=== PATIENT | male | born 1975 | race Hispanic/Latino ===

== ENCOUNTER 2017-06-16 08:55 | Inpatient (IN) | payer BC ==
--- NOTE | 2017-06-16 09:50 | ED PDOC ---
HPI: Back Time Seen by Provider: 06/16/17 09:08 Chief Complaint (Nursing): Back Pain Chief Complaint (Provider): Back pain History Per: Patient History/Exam Limitations: no limitations Onset/Duration Of Symptoms: Days (x2 months), Worse Since Current Symptoms Are (Timing): Still Present Associated Symptoms: None Exacerbating Factor(s): Sitting Additional Complaint(s): Tiburcio Beyer is a 41 year old male, with no significant past medical history, who presents to the emergency department complaining of weakness to right toes ongoing for x2 months and a worsening chronic right sided back pain since today. Patient reports the pain radiates down the right leg. Patient states symptoms worsen with sitting down and alleviated when laying flat. Patient was seen by neurosurgeon this week and had an MRI done x2 days ago. He was diagnosed with herniated disc and spinal stenosis, and prescribed steroids and ibuprofen. He denies any new weakness or numbness, urinary symptoms, fever or chills. No further medical complaints. PMD: None provided. Past Medical History Reviewed: Historical Data, Nursing Documentation, Vital Signs Vital Signs: Last Vital Signs Temp 98.7 F 06/16/17 09:00 Pulse 70 06/16/17 09:00 Resp 20 06/16/17 09:00 BP 112/75 06/16/17 09:00 Pulse Ox 99 06/16/17 09:00 - Surgical History Surgical History: No Surg Hx - Family History Family History: States: Unknown Family Hx - Social History Current smoker - smoking cessation education provided: No Alcohol: None Drugs: Denies - Home Medications Home Medications: Ambulatory Orders Medication Instructions Recorded Ibuprofen [Motrin Tab] 800 mg PO Q8H PRN 06/16/17 predniSONE [predniSONE Tab] 10 mg PO ASDIR 06/16/17 tiZANidine [Zanaflex] 2 mg PO HS 06/16/17 - Allergies Allergies/Adverse Reactions: Allergies Allergy/AdvReac Type Severity Reaction Status Date / Time No Known Allergies Allergy Verified 06/16/17 09:17 Review of Systems ROS Statement: Except As Marked, All Systems Reviewed And Found Negative Constitutional: Negative for: Fever, Chills Genitourinary Male: Negative for: Dysuria, Frequency, Incontinence Musculoskeletal: Positive for: Back Pain (right sided ), Leg Pain (right), Foot Pain (right toes weakness) Neurological: Negative for: Weakness, Numbness Physical Exam - Reviewed Nursing Documentation Reviewed: Yes Vital Signs Reviewed: Yes - Physical Exam Appears: Positive for: Non-toxic, No Acute Distress, Uncomfortable (from pain) Head Exam: Positive for: ATRAUMATIC, NORMAL INSPECTION, NORMOCEPHALIC Skin: Positive for: Normal Color, Warm, Dry Eye Exam: Positive for: Normal appearance, EOMI, PERRL Neck: Positive for: Painless ROM, Supple Cardiovascular/Chest: Positive for: Regular Rate, Rhythm. Negative for: Murmur Respiratory: Positive for: Normal Breath Sounds. Negative for: Respiratory Distress Gastrointestinal/Abdominal: Positive for: Normal Exam, Soft. Negative for: Tenderness, Guarding, Rebound Back: Positive for: Normal Inspection. Negative for: L CVA Tenderness, R CVA Tenderness, Vertebral Tenderness Extremity: Positive for: Normal ROM (lower extremities.), Other (plantar flexion and extension of toes limited due to weakness. ). Negative for: Tenderness, Pedal Edema, Deformity, Swelling Neurologic/Psych: Positive for: Alert, Oriented (x3), Gait (antalgic). Negative for: Aphasia, Facial Droop - ECG O2 Sat by Pulse Oximetry: 99 (RA) Pulse Ox Interpretation: Normal Medical Decision Making Medical Decision Making: Initial Impression: lumbar radiculopathy, disc herniation with chronic back pain. Initial Plan: --reevaluation --Patient is currently taking steroids and ibuprofen. Advised to continue prednisolone. MRI impression: -Interval progress in degree of stenosis at L5-S1 intervertebral disc level with further extrusion of the right paracentral disc herniation superiorly along the right posterior margin of L5 vertebra. There is significant thecal sac compression and right S1 nerve root compression. L4-5 shallow central disc herniation superimposed annular disc bulge with slight interval progression in degree of stenosis since 09/22/2012 MRI --Discussed case with Dr. Elaine regarding admission for intractable back pain and disc herniation. Scribe Attestation: Documented by Tano Wagner, acting as a scribe for Param Eason MD Provider Scribe Attestation: All medical record entries made by the Scribe were at my direction and personally dictated by me. I have reviewed the chart and agree that the record accurately reflects my personal performance of the history, physical exam, medical decision making, and the department course for this patient. I have also personally directed, reviewed, and agree with the discharge instructions and disposition. Disposition - Clinical Impression Clinical Impression: Back pain, Lumbar disc herniation - Patient ED Disposition Is Patient to be Admitted: Yes Discussed With Dr.: Vadim Elaine Doctor Will See Patient In The: Hospital Counseled Patient/Family Regarding: Studies Performed, Diagnosis - Disposition Disposition Time: 10:26 Condition: FAIR - Pt Status Changed To: Hospital Disposition Of: Inpatient - Admit Certification Admit to Inpatient:: After my assessment, the patient will require hospitalization for at least two midnights. This is because of the severity of symptoms shown, intensity of services needed, and/or the medical risk in this patient being treated as an outpatient. - POA Present On Arrival: None
[2017-06-16 11:06] LABS: BASO % 0.4 % (0.0-2.0); EOS # 0.1 K/uL (0.0-0.7); EOS % 1.2 % (0.0-4.0); HEMOGLOBIN 14.8 g/dL (12.0-18.0); LYMPH # 3.1 K/uL (1.0-4.3); LYMPH % 48.9 % (20.0-40.0); MEAN CELL VOLUME 90.9 fl (80.0-94.0); MEAN CORPUSCULAR HEMOGLOBIN 31.3 pg (27.0-31.0); MEAN CORPUSCULAR HGB CONC 34.4 g/dL (33.0-37.0); MEAN PLATELET VOLUME 7.9 fl (7.2-11.7); MONO # 0.6 K/uL (0.0-0.8); NEUT # 2.6 K/uL (1.8-7.0); NEUT % 40.5 % (50.0-75.0); NRBC % 0.1 % (0.0-0.0); RBC 4.73 Mil/uL (4.40-5.90); RED CELL DISTRIBUTION WIDTH 13.4 % (11.5-14.5); WHITE BLOOD COUNT 6.3 K/uL (4.8-10.8)
[2017-06-16 11:10] LABS: PARTIAL THROMBOPLASTIN TIME 29.3 Seconds (25.6-37.1); PROTHROMBIN TIME 11.5 Seconds (9.8-13.1)
[2017-06-16 11:14] LABS: BLOOD UREA NITROGEN 20 mg/dl (9-20); CALCIUM 9.8 mg/dL (8.4-10.2); GFR AFRICAN-AMERICAN > 60; GFR NON-AFRICAN AMERICAN > 60
--- NOTE | 2017-06-16 14:04 | RAD ---
PROCEDURE: CHEST RADIOGRAPH, 1 VIEW HISTORY: pre op COMPARISON: None available. FINDINGS: LUNGS: Clear. PLEURA: No pneumothorax or pleural fluid seen. CARDIOVASCULAR: Normal. OSSEOUS STRUCTURES: No significant abnormalities. VISUALIZED UPPER ABDOMEN: Normal. OTHER FINDINGS: None. IMPRESSION: No active disease.
[2017-06-16] MEDS ORDERED: Oxycodone/Acetaminophen 5/325 mg Tab PO PRN (14:13)
--- NOTE | 2017-06-16 14:19 | CP.PCM.PCO ---
Progress Note - Review of Symptoms Subjective: Patient is low risk for surgical intervention. CBC, CMP, PT/INR, EKG and chest x ray has been reviewed. Patient denies any chest pain, palpitation or dizziness. Patient denies any comorbid conditions
[2017-06-16] MEDS ORDERED: Oxycodone/Acetaminophen 5/325 mg Tab ONE (17:26)
[2017-06-16] MEDS: Oxycodone/Acetaminophen 5/325 mg Tab PO PRN (17:29)
[2017-06-17] MEDS ORDERED: Bupivacaine HCl 0.25% PF (30 ml) Inj ONE (07:15)
[2017-06-17] MEDS ORDERED: Absorbable Gelatin Sponge Size 12-7 ONE (07:16)
[2017-06-17] MEDS ORDERED: Lidocaine 2% w Epi 1:100,000 Inj IJ ONE (07:16)
[2017-06-17] MEDS ORDERED: Thrombin Topical 5,000 Int Units Spray Kit ONE (07:16)
[2017-06-17] MEDS ORDERED: Rocuronium 10 mg/ml (5 ml) ONE (07:27)
[2017-06-17] MEDS ORDERED: Midazolam 2 MG/2 ML VIAL ONE (07:27)
[2017-06-17] MEDS ORDERED: Propofol 10 mg/ml Inj (20 ML) ONE (07:27)
[2017-06-17] MEDS ORDERED: Lidocaine 4% (Laryng-O-Jet) Kit MM ONE (07:27)
--- NOTE | 2017-06-17 07:30 | CP.PCM.CON ---
History of Present Illness - History of Present Illness History of Present Illness: asked to see this pt admitted with intractable LBP,ongoing x many years worsening over the past 2 mos with difficulty ambulating,pain radiating to RLE and recent right foot weakness, + paresthesias,no relief in past with conservative management of PT and prescribed meds,increasing difficulty performimg ADL's,pt had MRI 3 years ago showing lumbar spondylosis and HNP L5-S1 ,recent MRI similiar with worsening stenosis,images reviewed,surgical and non surgical options d/w pt, due to worsening symptoms,pt wishes to proceed with lumbar decompression,microdiscectomy. Review of Systems - Review of Systems Systems not reviewed;Unavailable: Acuity of Condition - Neurological Neurological: As Per HPI Past Patient History - Infectious Disease Hx of Infectious Diseases: None - Tetanus Immunizations Tetanus Immunization: Unknown - Past Medical History & Family History Past Medical History?: No - Past Social History Smoking Status: Never Smoked Chewing Tobacco Use: No Cigar Use: No Occupation: [employer] Alcohol: Occasional Drugs: Denies Home Situation {Lives}: With Family Domestic Violence: Negative - HEMATOLOGICAL/ONCOLOGICAL Hx AIDS: No Hx Human Immunodeficiency Virus (HIV): No - INTEGUMENTARY Hx Dermatological Problems: No - MUSCULOSKELETAL/RHEUMATOLOGICAL Hx Musculoskeletal Disorders: No Hx Falls: No - GASTROINTESTINAL Hx Gastrointestinal Disorders: No - GENITOURINARY/GYNECOLOGICAL Hx Genitourinary Disorders: No - PSYCHIATRIC Hx Psychophysiologic Disorder: No Hx Substance Use: No - SURGICAL HISTORY Hx Surgeries: Yes Other/Comment: rt hand surgery - ANESTHESIA Hx Anesthesia: Yes Hx Anesthesia Reactions: No Hx Malignant Hyperthermia: No Meds Allergies/Adverse Reactions: Allergies Allergy/AdvReac Type Severity Reaction Status Date / Time No Known Allergies Allergy Verified 06/16/17 09:17 - Medications Medications: Current Medications Acetaminophen (Tylenol 325mg Tab) 650 mg PO Q4 PRN PRN Reason: Pain, Mild (1-3) Oxycodone/Acetaminophen (Percocet 5/325 Mg Tab) 1 tab PO Q4 PRN PRN Reason: Pain, moderate (4-7) Stop: 06/19/17 14:13 Last Admin: 06/16/17 17:29 Dose: 1 tab Oxycodone/Acetaminophen (Percocet 5/325 Mg Tab) 2 tab PO Q6 PRN PRN Reason: Pain, severe (8-10) Stop: 06/19/17 14:14 Physical Exam - Constitutional Appears: Well, Non-toxic, No Acute Distress - Head Exam Head Exam: ATRAUMATIC, NORMAL INSPECTION, NORMOCEPHALIC - Eye Exam Eye Exam: EOMI, Normal appearance - ENT Exam ENT Exam: Mucous Membranes Moist - Neck Exam Neck exam: Positive for: Full Rom, Normal Inspection - Respiratory Exam Respiratory Exam: Clear to Auscultation Bilateral, NORMAL BREATHING PATTERN - Cardiovascular Exam Cardiovascular Exam: REGULAR RHYTHM, +S1, +S2 - GI/Abdominal Exam GI & Abdominal Exam: Normal Bowel Sounds, Soft - Rectal Exam Rectal Exam: Deferred Additional comments: no pelvic or perirectal paresthesias - Extremities Exam Extremities exam: Positive for: normal inspection, pedal pulses present - Back Exam Back exam: vertebral tenderness - Neurological Exam Neurological exam: Alert, Oriented x3 Additional comments: ALMARAZ x 4 antigravity with RLE weakness and dorsiflexion weakness 4/5,decreased sensation RLE,depressed DTR's RLE otherwise +2 throughout - Psychiatric Exam Psychiatric exam: Normal Affect, Normal Mood - Skin Skin Exam: Dry, Intact, Normal Color Results - Vital Signs Recent Vital Signs: Last Vital Signs Temp 98.1 F 06/17/17 02:15 Pulse 83 06/17/17 02:15 Resp 20 06/17/17 02:15 BP 112/76 06/17/17 02:15 Pulse Ox 98 06/17/17 02:15 - Labs Result Diagrams: 06/16/17 10:50 06/16/17 10:50 Labs: Laboratory Results - last 24 hr 06/16/17 06/16/17 06/16/17 10:50 10:50 10:50 WBC 6.3 RBC 4.73 Hgb 14.8 Hct 43.0 MCV 90.9 MCH 31.3 H MCHC 34.4 RDW 13.4 Plt Count 204 MPV 7.9 Neut % (Auto) 40.5 L Lymph % (Auto) 48.9 H Sabine % (Auto) 9.0 Eos % (Auto) 1.2 Baso % (Auto) 0.4 Neut # (Auto) 2.6 Lymph # (Auto) 3.1 Sabine # (Auto) 0.6 Eos # (Auto) 0.1 Baso # (Auto) 0.0 PT 11.5 INR 1.0 APTT 29.3 Sodium 144 Potassium 4.6 Chloride 103 Carbon Dioxide 31 H Anion Gap 15 BUN 20 Creatinine 0.9 Est GFR ( Amer) > 60 Est GFR (Non-Af Amer) > 60 Random Glucose 99 Calcium 9.8 Blood Type Antibody Screen BBK History Checked 06/16/17 06/16/17 10:50 12:10 WBC RBC Hgb Hct MCV MCH MCHC RDW Plt Count MPV Neut % (Auto) Lymph % (Auto) Sabine % (Auto) Eos % (Auto) Baso % (Auto) Neut # (Auto) Lymph # (Auto) Sabine # (Auto) Eos # (Auto) Baso # (Auto) PT INR APTT Sodium Potassium Chloride Carbon Dioxide Anion Gap BUN Creatinine Est GFR ( Amer) Est GFR (Non-Af Amer) Random Glucose Calcium Blood Type A POSITIVE A POSITIVE Antibody Screen Negative BBK History Checked No verified bt Patient has bt Assessment & Plan - Assessment and Plan (Free Text) Assessment: 41 yo male with Lumbar Spondylosis/HNP/right foot drop and RLE radiculapathy/ Hemodynamically stable Plan: risks and benefits of surgery d/w pt,expressed understanding and wishes to proceed with Lumbar Decompression Right L5-S1 possible L4-5.
[2017-06-17] MEDS ORDERED: Succinylcholine 200 mg/10 ml Inj IV ONE (07:31)
[2017-06-17] MEDS ORDERED: Lactated Ringer's 1,000 ML IV ONE (07:35)
[2017-06-17] MEDS ORDERED: Lidocaine 2% w Epi 1:200,000 Pf Inj IJ ONE (08:05)
[2017-06-17] MEDS ORDERED: Sevoflurane - Inhalation Anesthetic Liq (250 ml) ONE (08:23)
[2017-06-17] MEDS ORDERED: Neostigmine Methylsulfate 3mg/3ml Syringe IV ONE (08:26)
[2017-06-17] MEDS ORDERED: HEMOSTATIC MATRIX 10 ML DIS.NEEDLE TOP ONE (08:30)
[2017-06-17] MEDS ORDERED: Absorbable Gelatin Sponge Size 12-7 TP ONE (08:35)
[2017-06-17] MEDS ORDERED: Thrombin Topical 5,000 Int Units Spray Kit TOP ONE (08:35)
[2017-06-17] MEDS ORDERED: Bupivacaine HCl 0.25% PF (30 ml) Inj IJ ONE (08:50)
[2017-06-17] MEDS ORDERED: HYDROmorphone 0.5 mg/0.5 ml ISec IVP PRN (08:59)
[2017-06-17] MEDS: Sodium Chloride 0.9% 1,000 ML IV SCH (10:55)
--- NOTE | 2017-06-17 14:16 | CARD ---
APPROVED REPORT EKG Measurement Heart [id number] <Conclusion> Sinus bradycardia Possible Left atrial enlargement Borderline ECG
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
--- NOTE | 2017-06-17 15:10 | OP ---
PROCEDURE DATE: 06/17/2017 PREOPERATIVE DIAGNOSIS: Herniated lumbar disc at L5-S1. POSTOPERATIVE DIAGNOSIS: Herniated lumbar disc at L5-S1. PROCEDURE: Right L5-S1 hemilaminotomy, medial facetectomy, removal of extruded fragment, microscope has been used. Fluoroscopy has been used. SURGEON: Anthony Hoffman MD SHUTTLE INSPECTOR: Elise Santana, physician student assistant who stayed throughout the case from the beginning to the end, helped me perform the surgery. DESCRIPTION OF PROCEDURE: The patient was brought to the operating room, anesthetized with general endotracheal anesthesia, placed in a prone position on the Stone table. Care was taken to protect all the pressure points. Back of the lumbar area thoroughly prepped and draped in same sterile manner after marking of the skin incision for lumbar laminectomy . After prepping and draping the area, the skin has been incised. Bleeding skins had been controlled with bipolar pondman. By using a Bovie pondman, paraspinal muscles have been detached, attachments of spinous process and lamina of L5-S1 on the right side. A Angeli retractor has been applied to alter the facet joint of L5-S1 and fluoroscopy has been used in order to confirm this level. Under microscopic examination, the lamina of L5-S1 and medial part of the facets of the L5-S1 have been drilled. Drilling was continued until the top and bottom of the ligamentum flavum was seen. By using a fine Kerrison punch, thinned out the lamina, medial part of the facets, ligamentum flavum has been removed. There was a large herniated disc next to the pedicle of L4 that has been found to be in multiple fragments. All this has been removed until there are no more fragments noted. After that hemostasis was best achieved. Fascia the interspinous ligaments and spinous process with 1-Vicryl, subcutaneous tissue with 3-Vicryl. Skin has been closed with intradermal 3 Vicryl stitches. The patient tolerated the procedure, and after procedure, mobilized to the recovery room in stabilized condition. Anthony Hoffman MD
--- NOTE | 2017-06-17 15:14 | RAD ---
PROCEDURE: Less than 1 hr fluoroscopic time utilized during performance of the procedure. HISTORY: LUMBAR LAMINECTOMY COMPARISON: None TECHNIQUE: Standard protocol for this study/examination. FINDINGS: Total fluoroscopic time (continuous mode) utilized during the procedure: 7.0 seconds.Total exam DLP: 2.82 (mGy) IMPRESSION: Submitted images from the current procedure: 1.0
[2017-06-17] MEDS ORDERED: Dexamethasone 4 MG in Sodium Chloride 0.9% 50 ML IVPB SCH (16:00)
[2017-06-17] MEDS: Oxycodone/Acetaminophen 5/325 mg Tab PO PRN (16:08)
[2017-06-17] MEDS: Dexamethasone 4 mg/1 ml IV SCH ×2 (16:09→21:18)
[2017-06-17] MEDS: ceFAZolin 1 GM in Sodium Chloride 0.9% 100 ML IVPB SCH (16:11)
[2017-06-17 23:46] VITALS: RESP 20
[2017-06-18] MEDS: ceFAZolin 1 GM in Sodium Chloride 0.9% 100 ML IVPB SCH (00:36)
[2017-06-18] MEDS: Sodium Chloride 0.9% 1,000 ML IV SCH (01:28)
[2017-06-18] MEDS: Dexamethasone 4 mg/1 ml IV SCH (04:28)
[2017-06-18 06:39] LABS: HEMOGLOBIN 14.2 g/dL (12.0-18.0); LYMPH % 7.1 % (20.0-40.0); MEAN CELL VOLUME 90.4 fl (80.0-94.0); MEAN CORPUSCULAR HEMOGLOBIN 30.8 pg (27.0-31.0); MEAN CORPUSCULAR HGB CONC 34.1 g/dL (33.0-37.0); MEAN PLATELET VOLUME 8.2 fl (7.2-11.7); MONO # 0.8 K/uL (0.0-0.8); MONO % 5.3 % (0.0-10.0); NEUT # 12.5 K/uL (1.8-7.0); NEUT % 87.6 % (50.0-75.0); PLATELET COUNT 217 K/uL (130-400); RBC 4.62 Mil/uL (4.40-5.90); RED CELL DISTRIBUTION WIDTH 12.9 % (11.5-14.5); WHITE BLOOD COUNT 14.3 K/uL (4.8-10.8)
[2017-06-18 07:52] VITALS: BP 105/78; TEMP 99.2
[2017-06-18] MEDS ORDERED: Dexamethasone 4 mg/1 ml IV SCH (09:00)
[2017-06-18 11:21] LABS: LYMPHOCYTE 4 % (20-50); MONOCYTE 4 % (0-10); NEUTROPHIL 92 % (42-75); PLATELET ESTIMATE NORMAL (NORMAL); TOTAL CELLS COUNTED 100
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
[2017-06-22 09:12] VITALS: PULSE 95; O2SAT 94
== END 2017-06-18 16:18 | disposition home or self-care (01) | DRG 520 ==
LOC: H.ER 08:55 → H.ERHOLD 10:27 → H.MEDSURG1 06-17 02:13
PROVIDERS: ADMIT Family Medicine; ATTEND Family Medicine
PROC: 01NB0ZZ Release Lumbar Nerve, Open Approach (ICD-10-PCS; 2017-06-17)
PROC: 0SB20ZZ Excision of Lumbar Vertebral Disc, Open Approach (ICD-10-PCS; principal; 2017-06-17 07:45)
DX: M51.16 Intervertebral disc disorders with radiculopathy, lumbar region (principal); G89.29 Other chronic pain; M51.27 Other intervertebral disc displacement, lumbosacral region; M47.26 Other spondylosis with radiculopathy, lumbar region; M21.371 Foot drop, right foot